=== PATIENT | male | born 1950 | race American Indian/Alaskan Native ===

== ENCOUNTER 2018-03-12 10:14 | Emergency (ER) | payer MEDICARE, MEDICAID ==
[2018-03-12] MEDS ORDERED: Sodium Chloride 0.9% 10 ML Syringe FLUSH PRN (10:26)
[2018-03-12 10:31] VITALS: BP 141/92
--- NOTE | 2018-03-12 12:18 | EDM.PDOC ---
ED HPI GENERAL MEDICAL PROBLEM - General Chief Complaint: Gastrointestinal Problem Stated Complaint: Colostomy Problems Time Seen by Provider: 03/12/18 10:18 Source of Information: Reports: Patient History Limitations: Reports: No Limitations - History of Present Illness INITIAL COMMENTS - FREE TEXT/NARRATIVE: Patient comes to the ED with complaints of needing a new colostomy bag. RN did visit with him and did admit him as a patient due to the status of his enlarged stoma. He has no complaints other than that area being swollen and hurting. His surgeon has told him he has a hernia to the area. He denies blood in urine or stool. Onset: Gradual Duration: Intermittent Location: Reports: Abdomen Abdomen Pain Score (Numeric/FACES): 5 - Related Data Allergies Allergy/AdvReac Type Severity Reaction Status Date / Time paregoric AdvReac Confusion Verified 11/22/17 09:37 Home Meds: Home Meds Atropine/Diphenoxylate [Lomotil 0.025-2.5 MG] 1 tab PO ASDIRECTED PRN 07/21/17 [ History] hydrOXYzine HCl [Atarax] 25 mg PO BEDTIME PRN 07/21/17 [History] oxyCODONE HCl/Acetaminophen [Percocet 5-325 mg Tablet] 1 tab PO Q4H PRN [History] Past Medical History Cardiovascular History: Reports: Hypertension Gastrointestinal History: Reports: Chronic Diarrhea, Other (See Below) Other Gastrointestinal History: mass of colon Genitourinary History: Reports: Other (See Below) Other Genitourinary History: hematuria Musculoskeletal History: Reports: Other (See Below) Other Musculoskeletal History: foot infection, osteomylitis Psychiatric History: Reports: Addiction Hematologic History: Reports: Other (See Below) Other Hematologic History: thrombocytopenia Oncologic (Cancer) History: Reports: Colon - Past Surgical History GI Surgical History: Reports: Colostomy Social & Family History - Family History Family Medical History: Noncontributory - Tobacco Use Smoking Status *Q: Current Some Day Smoker Years of Tobacco use: 30 Packs/Tins Daily: 0 Tobacco Use Comment: Smokes [place] tobacco, very rarely smokes, but states he will have a cigarette maybe once a year. 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 in [place] and a brother in [place]) ED ROS GENERAL - Review of Systems Review Of Systems: See Below Constitutional: Reports: No Symptoms HEENT: Reports: No Symptoms Respiratory: Reports: No Symptoms Cardiovascular: Reports: No Symptoms Endocrine: Reports: No Symptoms GI/Abdominal: Reports: Other (pressure and swelling at stoma site) : Reports: No Symptoms Musculoskeletal: Reports: No Symptoms Skin: Reports: No Symptoms Neurological: Reports: No Symptoms Psychiatric: Reports: No Symptoms Hematologic/Lymphatic: Reports: No Symptoms Immunologic: Reports: No Symptoms ED EXAM, GI/ABD - Physical Exam Exam: See Below Exam Limited By: No Limitations General Appearance: Alert, WD/WN, No Apparent Distress Eyes: Bilateral: EOMI Ears: Normal TMs Throat/Mouth: Normal Inspection, Normal Lips, Normal Teeth, Normal Gums, Normal Oropharynx, Normal Voice, No Airway Compromise Head: Atraumatic, Normocephalic Neck: Normal Inspection, Supple, Non-Tender, Full Range of Motion Respiratory/Chest: No Respiratory Distress, Lungs Clear, Normal Breath Sounds, No Accessory Muscle Use, Chest Non-Tender Cardiovascular: Normal Peripheral Pulses, Regular Rate, Rhythm, No Edema, No Gallop, No JVD, No Murmur, No Rub GI/Abdominal Exam: Normal Bowel Sounds, Soft, Other (colostomy to left lower abdomen. 6-7 cm ) Extremities: Normal Inspection, Normal Range of Motion, Non-Tender, Normal Capillary Refill, No Pedal Edema Neurological: Alert, Oriented, CN II-XII Intact, Normal Cognition, Normal Gait, Normal Reflexes, No Motor/Sensory Deficits Psychiatric: Normal Affect, Normal Mood Skin Exam: Warm, Dry, Intact, Normal Color, No Rash Lymphatic: No Adenopathy Course - Vital Signs Last Recorded V/S: Last Vital Signs Temp 37.1 C 03/12/18 10:28 Pulse 98 03/12/18 10:28 Resp 16 03/12/18 10:28 BP 141/92 H 03/12/18 10:28 Pulse Ox 100 03/12/18 10:28 - Orders/Labs/Meds Orders: Active Orders 24 hr Category Date Time Status Abdomen Pelvis wo Cont [CT] Stat Exams 03/12/18 11:19 Ordered Sodium Chloride 0.9% [Saline Flush] Med 03/12/18 10:26 Ordered 10 ml FLUSH ASDIRECTED PRN Saline Lock Insert [OM.PC] Routine Oth 03/12/18 10:26 Ordered Medication Orders Sodium Chloride (Saline Flush) 10 ml FLUSH ASDIRECTED PRN PRN Reason: Keep Vein Open Labs: Laboratory Tests 03/12/18 03/12/18 03/12/18 Range/Units 10:51 10:51 10:51 WBC 6.2 (4.0-10.0) x10^3/uL RBC 4.48 L (4.5-6.0) x10^6/uL Hgb 10.5 L (14.0-18.0) g/dL Hct 34.1 L (40.0-52.0) % MCV 76.1 L (78.0-93.0) fL MCH 23.4 L (26.0-32.0) pg MCHC 30.8 L (32.0-36.0) g/dL RDW Coeff of Pedro 20.8 H (10.0-15.0) % Plt Count 289 (130-400) x10^3/uL Neut % (Auto) 75.6 (50.0-80.0) % Lymph % (Auto) 10.9 L (25.0-50.0) % Charles % (Auto) 9.6 (2.0-11.0) % Eos % (Auto) 3.6 (0.0-4.0) % Baso % (Auto) 0.3 (0.2-1.2) % Sodium 136 (136-145) mmol/L Potassium 4.0 (3.5-5.1) mmol/L Chloride 102 (98-107) mmol/L Carbon Dioxide 29 (21-32) mmol/L Anion Gap 9.0 L (10-20) mmol/L BUN 19 H (7-18) mg/dL Creatinine 1.8 H (0.70-1.30) mg/dL Est Cr Clr Drug Dosing 36.28 mL/min Estimated GFR (MDRD) 38 Glucose 103 (74-106) mg/dL Lactic Acid 1.1 (0.4-2.0) mmol/L Calcium 9.0 (8.5-10.1) mg/dL Corrected Calcium 9.88 (8.5-10.1) mg/dL Total Bilirubin 0.9 (0.2-1.0) mg/dL AST 7 L (15-37) U/L ALT 9 L (16-63) U/L Alkaline Phosphatase 86 (46-116) U/L Total Protein 8.4 H (6.4-8.2) g/dL Albumin 2.9 L (3.4-5.0) g/dL Globulin 5.5 Albumin/Globulin Ratio 0.53 Meds: Medications Generic Name Dose Route Start Last Admin Trade Name Freq PRN Reason Stop Dose Admin Sodium Chloride 10 ml 03/12/18 10:26 Saline Flush FLUSH ASDIRECTED PRN Keep Vein Open Departure - Departure Time of Disposition: 12:18 Disposition: Home, Self-Care 01 Condition: Good Clinical Impression: Herniated colostomy - Discharge Information Instructions: Small Bowel Obstruction, [id number], Colostomy Home Guide, Adult Additional Instructions: You likely have a herniated colostomy/stoma. CT shows a parastomal herniation. Call your general surgeon as needed for additional follow up. You also need to make sure to have your supplies available before you run out of them. The hospital is unable to provide stoma care materials. Please call with any questions or concerns. - Problem List & Annotations (1) Herniated colostomy SNOMED Code(s): 135469681 Code(s): K94.09 - OTHER COMPLICATIONS OF COLOSTOMY Status: Acute Priority : Medium Current Visit: Yes - Problem List Review Problem List Initiated/Reviewed/Updated: Yes - My Orders Last 24 Hours: My Active Orders 03/12/18 10:26 Sodium Chloride 0.9% [Saline Flush] 10 ml FLUSH ASDIRECTED PRN Saline Lock Insert [OM.PC] Routine 03/12/18 11:19 Abdomen Pelvis wo Cont [CT] Stat - Assessment/Plan Last 24 Hours: My Active Orders 03/12/18 10:26 Sodium Chloride 0.9% [Saline Flush] 10 ml FLUSH ASDIRECTED PRN Saline Lock Insert [OM.PC] Routine 03/12/18 11:19 Abdomen Pelvis wo Cont [CT] Stat Assessment:: herniated colostomy Plan: You likely have a herniated colostomy/stoma. CT shows a parastomal herniation. Call your general surgeon as needed for additional follow up. You also need to make sure to have your supplies available before you run out of them. The hospital is unable to provide stoma care materials. Please call with any questions or concerns.
== END 2018-03-12 12:30 | disposition home or self-care (01) ==
LOC: VM.ED 10:14
DX: K94.09 Other complications of colostomy (principal); I10 Essential (primary) hypertension; F17.210 Nicotine dependence, cigarettes, uncomplicated; R19.09 Other intra-abdominal and pelvic swelling, mass and lump; Z88.8 Allergy status to other drugs, medicaments and biological substances; Z79.899 Other long term (current) drug therapy
CPT/HCPCS: 36415; 74176; 80053; 83605; 85025; 99283

== ENCOUNTER 2019-05-31 16:04 | Emergency (ER) | payer MEDICAID, MEDICARE ==
[2019-05-31] MEDS ORDERED: Acetaminophen/HYDROcodone 325-10 MG Tab PO ONE (16:21)
[2019-05-31] MEDS ORDERED: Sodium Chloride 0.9% 10 ML Syringe FLUSH PRN (16:22)
[2019-05-31] MEDS ORDERED: Iopamidol 612 MG/ML 100 ML Bottle IVPUSH ONE (16:49)
--- NOTE | 2019-05-31 16:50 | EDM.PDOC ---
ED HPI GENERAL MEDICAL PROBLEM - General Time Seen by Provider: 05/31/19 16:04 Source of Information: Reports: Patient History Limitations: Reports: No Limitations - History of Present Illness INITIAL COMMENTS - FREE TEXT/NARRATIVE: Pt. presents to ER with complaints of R sided groin/thigh and abdominal pain. Pain has been present for approx. 10-14 days. Denies any trauma to the area. He has a history of colon CA. This was surgically resected. He also appears to have had radiation but opted out of chemotherapy. He has a colostomy as a result of the colon resection. He states that he also has noted some bulging medial to the stoma. He claims he is "cancer free". Pt. lives by himself in [facility]. He sees Nima Burton in the clinic. He was seen in the clinic for this and diagnosed with a muscle stain. His surgeon has been wanting to do a CT of his abd./pelvis but he has been unable to get to town as his car has been broke down. He lives by himself. He is brought to the ER by his neighbor. He states that the patient is living in dirty living conditions, with feces on the floor. He uses Attends. Pt. states that he is no longer able to take care of himself. He has to use attends, as he is unable to walk or ambulate without difficulty. He is requesting admission to [facility], but was informed he needed to be worked up to determine the cause of his symptoms. He states that he has sisters in the [facility] part of the that are going to be coming here in the near future to see him. Pt. chews tobacco. Denies any street drug or alcohol use. He is a non-smoker. Onset Date: 05/31/19 Right Groin Pain Score (Numeric/FACES): 8 - Related Data Allergies Allergy/AdvReac Type Severity Reaction Status Date / Time paregoric AdvReac Confusion Verified 11/22/17 09:37 Home Meds: Home Meds Atropine/Diphenoxylate [Lomotil 0.025-2.5 MG] 1 tab PO ASDIRECTED PRN 07/21/17 [ History] hydrOXYzine HCl [Atarax] 25 mg PO BEDTIME PRN 07/21/17 [History] oxyCODONE HCl/Acetaminophen [Percocet 5-325 mg Tablet] 1 tab PO Q4H PRN [History] Past Medical History Cardiovascular History: Reports: Hypertension Gastrointestinal History: Reports: Chronic Diarrhea, Other (See Below) Other Gastrointestinal History: mass of colon Genitourinary History: Reports: Other (See Below) Other Genitourinary History: hematuria Musculoskeletal History: Reports: Other (See Below) Other Musculoskeletal History: foot infection, osteomylitis Psychiatric History: Reports: Addiction Hematologic History: Reports: Other (See Below) Other Hematologic History: thrombocytopenia Oncologic (Cancer) History: Reports: Colon - Past Surgical History GI Surgical History: Reports: Colostomy Social & Family History - Family History Family Medical History: Noncontributory - Caffeine Use Caffeine Use: Reports: Coffee, Soda - Living Situation & Occupation Living situation: Reports: Single 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 Denies: Fever, Chills HEENT: Reports: No Symptoms Respiratory: Reports: No Symptoms Cardiovascular: Reports: No Symptoms Endocrine: Reports: No Symptoms GI/Abdominal: Reports: Abdominal Pain, Flatus, Other (see HPI). Denies: Hematemesis, Hematochezia, Melena, Nausea, Vomiting : Reports: No Symptoms Musculoskeletal: Reports: Leg Pain (R upper thigh/pelvis) Skin: Reports: No Symptoms Neurological: Reports: No Symptoms Psychiatric: Reports: No Symptoms Hematologic/Lymphatic: Reports: No Symptoms Immunologic: Reports: No Symptoms ED EXAM, GENERAL - Physical Exam Exam: See Below Exam Limited By: No Limitations General Appearance: Alert, WD/WN, Moderate Distress, Cachetic Eye Exam: Bilateral Eye: EOMI, PERRL Head: Atraumatic, Normocephalic Neck: Normal Inspection, Non-Tender Respiratory/Chest: No Respiratory Distress, Lungs Clear, Normal Breath Sounds, No Accessory Muscle Use, Chest Non-Tender Cardiovascular: Normal Peripheral Pulses, Regular Rate, Rhythm, No Edema, No Gallop, No JVD, No Murmur, No Rub GI/Abdominal: Soft, No Organomegaly, Hernia. No: Guarding (Male) Exam: Deferred Rectal (Males) Exam: Deferred Back Exam: Normal Inspection, Full Range of Motion Extremities: Normal Range of Motion, No Pedal Edema, Limited Range of Motion, Other (severe tenderness with manipulation of the R hip. ROM is extremely limited. He is not able to bear weight.) Neurological: Alert, Oriented, CN II-XII Intact, Normal Cognition, Normal Gait, Normal Reflexes, No Motor/Sensory Deficits Psychiatric: Normal Affect, Normal Mood Skin Exam: Warm, Dry, Intact, Normal Color, No Rash Lymphatic: No Adenopathy Course - Vital Signs Last Recorded V/S: Last Vital Signs Temp 36.8 C 05/31/19 19:00 Pulse 100 05/31/19 19:00 Resp 20 05/31/19 19:00 BP 110/69 05/31/19 19:00 Pulse Ox 98 05/31/19 16:05 - Orders/Labs/Meds Orders: Active Orders 24 hr Category Date Time Status Chest Abdomen Pelvis w Cont [CT] Stat Exams 05/31/19 16:20 Taken CULTURE BLOOD [BC] Stat Lab 05/31/19 18:42 Ordered CULTURE BLOOD [BC] Stat Lab 05/31/19 18:42 Ordered CULTURE URINE [RM] Stat Lab 05/31/19 18:47 Ordered Piperacillin/Tazobactam [Zosyn] 4.5 gm Med 05/31/19 19:09 Ordered Sodium Chloride 0.9% [Normal Saline] 100 ml IV STAT Sodium Chloride 0.9% @ 500 MLS/HR(500ml) Med 05/31/19 18:57 Ordered Sodium Chloride 0.9% [Normal Saline] 500 ml IV ONETIME Sodium Chloride 0.9% [Saline Flush] Med 05/31/19 16:22 Active 10 ml FLUSH ASDIRECTED PRN Blood Culture x2 Reflex Set [OM.PC] Stat Oth 05/31/19 18:41 Ordered Peripheral IV Insertion Adult [OM.PC] Routine Oth 05/31/19 16:22 Ordered Medication Orders Sodium Chloride (Normal Saline) 500 mls @ 500 mls/hr IV ONETIME ONE Stop: 05/31/19 19:56 Sodium Chloride (Saline Flush) 10 ml FLUSH ASDIRECTED PRN PRN Reason: Keep Vein Open Labs: Laboratory Tests 05/31/19 05/31/19 05/31/19 Range/Units 16:27 16:27 16:27 WBC 12.6 H (4.0-10.0) x10^3/uL RBC 4.33 L (4.5-6.0) x10^6/uL Hgb 10.3 L (14.0-18.0) g/dL Hct 31.8 L (40.0-52.0) % MCV 73.4 L (78.0-93.0) fL MCH 23.8 L (26.0-32.0) pg MCHC 32.4 (32.0-36.0) g/dL RDW Coeff of Pedro 16.3 H (10.0-15.0) % Plt Count 474 H D (130-400) x10^3/uL Add Manual Diff Yes Neutrophils % (Manual) 82 H (50-80) % Band Neutrophils % 8 H (0-6) % Lymphocytes % (Manual) 4 L (25-50) % Monocytes % (Manual) 5 (2-11) % Metamyelocytes % 1 H (0) % Vacuolated Monocytes 1+ slight H Toxic Granulation 1+ slight H Platelet Estimate Increased H Hypochromasia 1+ slight H Anisocytosis 1+ slight H Microcytosis 1+ slight H Target Cells 1+ slight H PT 13.1 H (10.0-12.8) SEC INR 1.2 L (2.0-3.5) Sodium 131 L (136-145) mmol/L Potassium 3.1 L (3.5-5.1) mmol/L Chloride 92 L (98-107) mmol/L Carbon Dioxide 24 (21-32) mmol/L Anion Gap 18.1 (10-20) mmol/L BUN 29 H (7-18) mg/dL Creatinine 1.3 (0.70-1.30) mg/dL Est Cr Clr Drug Dosing TNP Estimated GFR (MDRD) 55 Glucose 111 H (74-106) mg/dL Lactic Acid (0.4-2.0) mmol/L Calcium 8.6 (8.5-10.1) mg/dL Corrected Calcium 10.36 H (8.5-10.1) mg/dL Total Bilirubin 0.8 (0.2-1.0) mg/dL AST 46 H (15-37) U/L ALT 35 (16-63) U/L Alkaline Phosphatase 131 H (46-116) U/L Total Protein 7.6 (6.4-8.2) g/dL Albumin 1.8 L (3.4-5.0) g/dL Globulin 5.8 Albumin/Globulin Ratio 0.31 Urine Color (YELLOW) Urine Appearance (CLEAR) Urine pH (5.0-8.0) Ur Specific [place] Urine Protein (NEGATIVE) mg/dL Urine Glucose (UA) (NEGATIVE) mg/dL Urine Ketones (NEGATIVE) mg/dL Urine Occult Blood (NEGATIVE) Urine Nitrite (NEGATIVE) Urine Bilirubin (NEGATIVE) Urine Urobilinogen (0.2) EU/dL Ur Leukocyte Esterase (NEGATIVE) Urine RBC (NOT SEEN) /HPF Urine WBC (NOT SEEN) /HPF Ur Squamous Epith Cells (NEGATIVE) /HPF Urine Bacteria (NEGATIVE) /HPF Urine Mucus (NEGATIVE) /LPF 05/31/19 05/31/19 Range/Units 16:27 17:55 WBC (4.0-10.0) x10^3/uL RBC (4.5-6.0) x10^6/uL Hgb (14.0-18.0) g/dL Hct (40.0-52.0) % MCV (78.0-93.0) fL MCH (26.0-32.0) pg MCHC (32.0-36.0) g/dL RDW Coeff of Pedro (10.0-15.0) % Plt Count (130-400) x10^3/uL Add Manual Diff Neutrophils % (Manual) (50-80) % Band Neutrophils % (0-6) % Lymphocytes % (Manual) (25-50) % Monocytes % (Manual) (2-11) % Metamyelocytes % (0) % Vacuolated Monocytes Toxic Granulation Platelet Estimate Hypochromasia Anisocytosis Microcytosis Target Cells PT (10.0-12.8) SEC INR (2.0-3.5) Sodium (136-145) mmol/L Potassium (3.5-5.1) mmol/L Chloride (98-107) mmol/L Carbon Dioxide (21-32) mmol/L Anion Gap (10-20) mmol/L BUN (7-18) mg/dL Creatinine (0.70-1.30) mg/dL Est Cr Clr Drug Dosing Estimated GFR (MDRD) Glucose (74-106) mg/dL Lactic Acid 3.6 H* (0.4-2.0) mmol/L Calcium (8.5-10.1) mg/dL Corrected Calcium (8.5-10.1) mg/dL Total Bilirubin (0.2-1.0) mg/dL AST (15-37) U/L ALT (16-63) U/L Alkaline Phosphatase (46-116) U/L Total Protein (6.4-8.2) g/dL Albumin (3.4-5.0) g/dL Globulin Albumin/Globulin Ratio Urine Color Yellow (YELLOW) Urine Appearance Turbid H (CLEAR) Urine pH 8.5 H (5.0-8.0) Ur Specific [place] 1.020 Urine Protein >=300 H (NEGATIVE) mg/dL Urine Glucose (UA) Negative (NEGATIVE) mg/dL Urine Ketones Negative (NEGATIVE) mg/dL Urine Occult Blood Moderate H (NEGATIVE) Urine Nitrite Negative (NEGATIVE) Urine Bilirubin Negative (NEGATIVE) Urine Urobilinogen 1.0 (0.2) EU/dL Ur Leukocyte Esterase Large H (NEGATIVE) Urine RBC 5-10 H (NOT SEEN) /HPF Urine WBC 20-30 H (NOT SEEN) /HPF Ur Squamous Epith Cells Not seen (NEGATIVE) /HPF Urine Bacteria Moderate H (NEGATIVE) /HPF Urine Mucus Not seen (NEGATIVE) /LPF Meds: Medications Generic Name Dose Route Start Last Admin Trade Name Freq PRN Reason Stop Dose Admin Sodium Chloride 500 mls @ 500 mls/hr 05/31/19 18:57 Normal Saline IV 05/31/19 19:56 ONETIME ONE Sodium Chloride 10 ml 05/31/19 16:22 Saline Flush FLUSH ASDIRECTED PRN Keep Vein Open Discontinued Medications Generic Name Dose Route Start Last Admin Trade Name Freq PRN Reason Stop Dose Admin Hydrocodone Bitart/Acetaminophen 1 tab 05/31/19 16:21 05/31/19 16:33 [place] 325-10 Mg PO 05/31/19 16:22 1 tab ONETIME ONE Administration Ceftriaxone Sodium 2 gm 05/31/19 18:24 05/31/19 18:40 Rocephin IVPUSH 05/31/19 18:25 2 gm STAT ONE Administration Iopamidol 100 ml 05/31/19 16:49 05/31/19 18:27 Isovue-300 (61%) IVPUSH 05/31/19 16:50 100 ml ONETIME ONE Administration - Radiology Interpretation Free Text/Narrative:: CT chest abdomen and pelvis with contrast was obtained. Pelvic mass of unknown etiology noted in pelvis measuring [id number]. Appears to be adjacent abdominal abscess extending into R hip with evidence of septic arthritis and fluid collection involving the R iliopsoas muscle. Bilateral hydronephrosis with ureteral stents, present on previous exam. Mixing artifact vs. partially occlusive DVT involving the R common femoral artery. Departure - Departure Time of Disposition: 19:17 Disposition: DC/Tfer to Acute Hospital 02 Condition: Serious Clinical Impression: Abdominal abscess, Septic arthritis, UTI (urinary tract infection) - Discharge Information - Problem List Review Problem List Initiated/Reviewed/Updated: Yes - My Orders Last 24 Hours: My Active Orders 05/31/19 16:20 Chest Abdomen Pelvis w Cont [CT] Stat 05/31/19 16:22 Sodium Chloride 0.9% [Saline Flush] 10 ml FLUSH ASDIRECTED PRN Peripheral IV Insertion Adult [OM.PC] Routine 05/31/19 18:41 Blood Culture x2 Reflex Set [OM.PC] Stat 05/31/19 18:42 CULTURE BLOOD [BC] Stat CULTURE BLOOD [BC] Stat 05/31/19 18:47 CULTURE URINE [RM] Stat 05/31/19 18:57 Sodium Chloride 0.9% @ 500 MLS/HR(500ml) Sodium Chloride 0.9% [Normal Saline] 500 ml IV ONETIME 05/31/19 19:09 Piperacillin/Tazobactam [Zosyn] 4.5 gm Sodium Chloride 0.9% [Normal Saline] 100 ml IV STAT - Assessment/Plan Last 24 Hours: My Active Orders 05/31/19 16:20 Chest Abdomen Pelvis w Cont [CT] Stat 05/31/19 16:22 Sodium Chloride 0.9% [Saline Flush] 10 ml FLUSH ASDIRECTED PRN Peripheral IV Insertion Adult [OM.PC] Routine 05/31/19 18:41 Blood Culture x2 Reflex Set [OM.PC] Stat 05/31/19 18:42 CULTURE BLOOD [BC] Stat CULTURE BLOOD [BC] Stat 05/31/19 18:47 CULTURE URINE [RM] Stat 05/31/19 18:57 Sodium Chloride 0.9% @ 500 MLS/HR(500ml) Sodium Chloride 0.9% [Normal Saline] 500 ml IV ONETIME 05/31/19 19:09 Piperacillin/Tazobactam [Zosyn] 4.5 gm Sodium Chloride 0.9% [Normal Saline] 100 ml IV STAT Plan: Pt. will be transferred to [facility]. I spoke with Dr. Chapa who accepts the patient in transfer. He was started on Zosyn 4.5 gm IV. He was started on NS at 500ml/hr. He was tachycardic at 120 on arrival to ED. Lactic acid is elevated. Blood and urine cultures were obtained and are pending. Pain was controlled with IV dilaudid. He can receive dilaudid 1 mg every hour as needed for pain during transport. All questions were answered.
[2019-05-31 16:57] LABS: CHLORIDE,CL 92 mmol/L (98-107); SODIUM,NA 131 mmol/L (136-145)
[2019-05-31 16:59] LABS: ANION GAP 18.1 mmol/L (10-20)
[2019-05-31] MEDS ORDERED: cefTRIAXone 2 GM Vial IVPUSH ONE (18:24)
--- NOTE | 2019-05-31 18:45 | CR ---
[id number] RAD/RAD Femur Right 2V EXAM: RIGHT FEMUR 5 VIEWS INDICATION: Upper leg pain. COMPARISON: None. DISCUSSION: Soft tissue gas projecting over the right pelvis and hip compatible with abscess seen on concomitant CT. Moderate osteoarthritis of the right hip and mild degenerative changes in the. No fracture or dislocation is identified. Partially imaged ureteral stents. IMPRESSION: 1. Soft tissue gas overlying the right pelvis and hip consistent with abscess seen on CT. Adolfo Moe MD 05/31/19 [id number] Thank you for allowing us to participate in the care of your patient.
[2019-05-31] MEDS ORDERED: Sodium Chloride 0.9% 500 ML IV ONE (18:57)
[2019-05-31] MEDS ORDERED: Piperacillin/Tazobactam 4.5 GM in Sodium Chloride 0.9% 100 ML IV ONE (19:09)
[2019-05-31 19:10] VITALS: BP 110/69; PULSE 100
[2019-05-31] MEDS ORDERED: HYDROmorphone 1 MG/ML Syringe IVPUSH ONE (19:11)
--- NOTE | 2019-06-01 07:57 | CT ---
[id number] CT/CT Chest Abdomen Pelvis W IV EXAM: CHEST ABDOMEN AND PELVIS CT WITH CONTRAST INDICATION: Right-sided groin pain with history of colon cancer. COMPARISON: May 03, 2018 abdomen and pelvis study. DISCUSSION: size. No thoracic adenopathy. Coronary artery calcifications are noted. Abdomen and pelvis: Left lower quadrant colostomy. A pelvic mass between the rectal stump in the posterior wall of the urinary bladder has significantly increased in size measuring about 12 x 10 x 7 cm with areas of necrosis. This abuts and likely invades the posterior wall of the urinary bladder. There is a large complex gas and fluid collection in the abdomen and pelvis involving the psoas muscle, iliac is muscle and extending into the right hip joint, the abductor and flexor compartments of the thigh. This is compatible with abscess and measures about 22 x 11 x 9 cm. Moderate bilateral hydronephrosis is increased relative to the prior study particularly on the left. Bilateral ureteral stents are in place the right proximal pigtail in the renal pelvis and distal pigtail in the bladder and the left proximal pigtail in the left upper pole calyx and distal tail in the urinary bladder. Development of mild to moderate retroperitoneal adenopathy compatible with metastatic disease Contrast mixing artifact versus the venous thrombosis of the right common femoral and external iliac vein. The liver, pancreas, spleen, right adrenal gland and proximal small bowel are unremarkable. Stable 22 x 13 mm left adrenal nodule. No free air. Trace free fluid in the pelvis. Subcutaneous edema in the partially imaged right extremity, perineum and abdominal wall. The osseous structures are unremarkable. IMPRESSION: 1. Large complex gas and fluid collection involving the right iliopsoas musculature, the right hip joint and the proximal thigh muscle compartments compatible with abscess and secondary septic arthritis. 2. Moderate bilateral hydronephrosis has increased. Ureteral stents are in place. 3. Significant increase in a complex pelvic mass and development of mild to moderate retroperitoneal lymphadenopathy consistent with malignancy. 4. Mixing artifact versus partially occlusive focus of DVT in the right common femoral and external iliac veins. Adolfo Moe MD 06/01/19 [id number] Thank you for allowing us to participate in the care of your patient.
== END 2019-05-31 20:22 | disposition short-term general hospital (02) ==
LOC: VM.ED 16:04
DX: L02.211 Cutaneous abscess of abdominal wall (principal); M00.9 Pyogenic arthritis, unspecified; N39.0 Urinary tract infection, site not specified; I10 Essential (primary) hypertension; Z88.8 Allergy status to other drugs, medicaments and biological substances; Z85.038 Personal history of other malignant neoplasm of large intestine
CPT/HCPCS: 36415; 71260; 73552; 74177; 80053; 81001; 83605; 85025; 85610; 87040; 87086; 96365; 96375; 99285; A9270; J0696; J1170; J2543; J7040; J7050; Q9967; 99284-GF